=== PATIENT | female | born 1955 | race Caucasian/White ===

== ENCOUNTER 2023-05-11 20:00 | Inpatient (IN) | payer MEDICARE, OTHER ==
[~2023-05-11] VITALS: Ht 157.5 cm; Wt 61.7 kg
[2023-05-11] MEDS ORDERED: IV NS 0.9% 1,000 ML BAG IV ONE (20:30)
[2023-05-11 21:04] LABS: BASOPHILS % (AUTO) 0.5 % (0.0-2.0); EOSINOPHILS # (AUTO) 0.1 K/uL (0.0-0.7); EOSINOPHILS % (AUTO) 1.7 % (0.0-6.0); HEMATOCRIT 36 % (33-45); HEMOGLOBIN 11.9 g/dL (11.5-14.8); LYMPHOCYTES # (AUTO) 1.9 K/uL (0.8-4.8); LYMPHOCYTES % (AUTO) 36.7 % (20.0-44.0); MEAN CORPUSCULAR HEMOGLOBIN 30 PG (26.0-33.0); MEAN CORPUSCULAR HGB CONC 33 g/dl (31.0-36.0); MEAN CORPUSCULAR VOLUME 92 fL (82-100); MONOCYTES # (AUTO) 0.9 K/uL (0.1-1.30); MONOCYTES % (AUTO) 16.6 % (2.0-12.0); NEUTROPHILS # (AUTO) 2.3 K/uL (1.8-8.9); NEUTROPHILS % (AUTO) 44.5 % (43.0-81.0); PLATELET COUNT (AUTO) 211 K/uL (150-450); RED BLOOD CELL COUNT(AUTO) 3.92 MIL/uL (4.0-5.2); RED CELL DISTRIBUTION WIDTH 13.2 % (11.5-15.0); WHITE BLOOD COUNT (AUTO) 5.3 K/uL (4.3-11.0)
[2023-05-11 21:26] LABS: CALCIUM, SERUM 8.9 mg/dL (8.5-10.1); CREATININE 0.7 mg/dL (0.6-1.3); POTASSIUM 4.3 mmol/L (3.5-5.1)
[2023-05-11 21:32] LABS: ALBUMIN 2.9 g/dL (3.4-5.0); BILIRUBIN,DIRECT 0.1 mg/dL (0.0-0.2); BILIRUBIN,TOTAL 0.1 mg/dL (0.2-1.0); TOTAL PROTEIN, SERUM 6.7 g/dL (6.4-8.2)
[2023-05-11 22:15] LABS: ANISOCYTOSIS 1+; EOSINOPHILS % (MANUAL) 1 % (0-4); LYMPHOCYTES % (MANUAL) 41 % (16-48); MONOCYTES % (MANUAL) 11 % (0-11.0); NEUTROPHILS % (MANUAL) 47 (42-76); PLATELET ESTIMATE ADEQUATE
[2023-05-11] MEDS ORDERED: ONDANSETRON HCL/PF 4 MG/2 ML VIAL IVP PRN (22:30)
[2023-05-11] MEDS ORDERED: ACETAMINOPHEN 325 MG TABLET PO PRN (22:30)
[2023-05-11] MEDS ORDERED: MAG HYDROX/AL HYDROX/SIMETH 30 ML UDC PO PRN (22:30)
[2023-05-11] MEDS ORDERED: MAGNESIUM HYDROXIDE 30 ML UDC PO PRN (22:30)
[2023-05-11] MEDS: ENOXAPARIN SODIUM 40 MG/0.4 ML DISP.SYRIN SQ SCH (23:06)
[2023-05-12] MEDS ORDERED: OLAN10TA3 PO (03:22)
[2023-05-12] MEDS ORDERED: DIVA500T4 PO (03:26)
[2023-05-12] MEDS ORDERED: FERR325T23 PO (03:26)
[2023-05-12 04:00] VITALS: BP 122/74; TEMP 97.2; O2SAT 98
[2023-05-12 07:23] LABS: BASOPHILS % (AUTO) 0.4 % (0.0-2.0); EOSINOPHILS # (AUTO) 0.1 K/uL (0.0-0.7); EOSINOPHILS % (AUTO) 1.8 % (0.0-6.0); HEMATOCRIT 37 % (33-45); HEMOGLOBIN 12.1 g/dL (11.5-14.8); LYMPHOCYTES # (AUTO) 1.5 K/uL (0.8-4.8); MEAN CORPUSCULAR HEMOGLOBIN 30 PG (26.0-33.0); MEAN CORPUSCULAR HGB CONC 33 g/dl (31.0-36.0); MEAN CORPUSCULAR VOLUME 93 fL (82-100); MONOCYTES # (AUTO) 0.7 K/uL (0.1-1.30); MONOCYTES % (AUTO) 14.6 % (2.0-12.0); NEUTROPHILS # (AUTO) 2.4 K/uL (1.8-8.9); NEUTROPHILS % (AUTO) 51.2 % (43.0-81.0); PLATELET COUNT (AUTO) 215 K/uL (150-450); RED BLOOD CELL COUNT(AUTO) 3.99 MIL/uL (4.0-5.2); RED CELL DISTRIBUTION WIDTH 13.2 % (11.5-15.0); WHITE BLOOD COUNT (AUTO) 4.7 K/uL (4.3-11.0)
[2023-05-12 07:54] LABS: THYROID STIMULATING HORMONE 2.731 uIU/mL (0.358-3.74)
[2023-05-12 08:00] VITALS: BP 126/73; TEMP 98; O2SAT 98
[2023-05-12 08:00] LABS: CALCIUM, SERUM 8.3 mg/dL (8.5-10.1); CREATININE 0.7 mg/dL (0.6-1.3); MAGNESIUM 1.8 mg/dL (1.8-2.4); PHOSPHORUS 4.6 mg/dL (2.5-4.9); POTASSIUM 4.3 mmol/L (3.5-5.1)
[2023-05-12] MEDS ORDERED: ACET-868 PO (08:57)
[2023-05-12] MEDS ORDERED: NA P133E RC (08:57)
[2023-05-12] MEDS ORDERED: MAGN400O6 PO (08:57)
[2023-05-12] MEDS ORDERED: TYL2T PO (08:57)
[2023-05-12] MEDS: PANTOPRAZOLE 40 MG TABLET.DR PO SCH (08:57)
[2023-05-12] MEDS ORDERED: BISA10SU11 RC (08:57)
[2023-05-12 16:00] VITALS: BP 119/73; TEMP 98.1; O2SAT 98
[2023-05-12 20:00] VITALS: BP 116/71; TEMP 98.1; O2SAT 96
[2023-05-12] MEDS: ENOXAPARIN SODIUM 40 MG/0.4 ML DISP.SYRIN SQ SCH (21:09)
[2023-05-13 04:00] VITALS: BP 121/75; TEMP 98.3; O2SAT 95
[2023-05-13] MEDS: PANTOPRAZOLE 40 MG TABLET.DR PO SCH (07:52)
[2023-05-13 08:00] VITALS: BP 118/76; TEMP 98.8; O2SAT 98
[2023-05-13 16:00] VITALS: BP 116/67; TEMP 98.5; O2SAT 99
[2023-05-13 18:00] VITALS: BP 116/67; TEMP 98.5; O2SAT 99
[2023-05-13 20:00] VITALS: BP 113/70; TEMP 98; O2SAT 93
[2023-05-13] MEDS: ENOXAPARIN SODIUM 40 MG/0.4 ML DISP.SYRIN SQ SCH (21:29)
[2023-05-14 04:00] VITALS: BP 130/74; TEMP 97.8; O2SAT 97
[2023-05-14] MEDS: PANTOPRAZOLE 40 MG TABLET.DR PO SCH (07:49)
[2023-05-14 08:00] VITALS: BP 121/79; TEMP 97.7; O2SAT 98
[2023-05-14 16:05] VITALS: BP 121/62; TEMP 97.6; O2SAT 98
[2023-05-14 20:00] VITALS: BP 114/66; TEMP 98.1; O2SAT 97
[2023-05-14] MEDS: ENOXAPARIN SODIUM 40 MG/0.4 ML DISP.SYRIN SQ SCH (22:07)
[2023-05-15 04:00] VITALS: BP 128/72; TEMP 98.6; O2SAT 98
[2023-05-15] MEDS: PANTOPRAZOLE 40 MG TABLET.DR PO SCH (07:48)
[2023-05-15 08:00] VITALS: BP 144/73; TEMP 98.2; O2SAT 99
== END 2023-05-15 12:29 | DRG 179 ==
LOC: ER 20:21 → MEDSG1 22:21
PROVIDERS: ATTEND Nurse Practitioner Acute Care
DX: U07.1 COVID-19 (principal); F43.10 Post-traumatic stress disorder, unspecified; F20.9 Schizophrenia, unspecified; F41.9 Anxiety disorder, unspecified; E86.0 Dehydration; R53.1 Weakness
CPT/HCPCS: 36415; 71045-TC; 80048-TC; 80061-TC; 80076-TC; 83735-TC; 84100-TC; 84443-TC; 85025-TC; 85378-TC; 86140-TC; 87081-TC; 97116-TC; G0378; J1650